=== PATIENT | male | born 1955 | race Caucasian/White ===

== ENCOUNTER → 2016-07-24 | Outpatient (CLI) | payer OTHER ==
[2016-07-24 09:53] LABS: BASOPHILS # (AUTO) 0.02 10*3/UL; BASOPHILS % (AUTO) 0.2 % (0-1); EOSINOPHILS # (AUTO) 0.03 10*3/UL; EOSINOPHILS % (AUTO) 0.3 % (0-8); HEMATOCRIT 49.2 % (42.0-52.0); HEMOGLOBIN 17.1 g/dL (14.0-18.0); LYMPHOCYTES # (AUTO) 1.37 10*3/uL; MEAN CORPUSCULAR HGB CONC 34.8 g/dL (33-37); MEAN PLATELET VOLUME 9.1 FL (7.4-12.2); MONOCYTES # (AUTO) 1.04 10*3/UL (0.3-0.8); NEUTROPHILS # (AUTO) 7.88 10*3/UL; NEUTROPHILS % (AUTO) 76.1 % (50-80); RED BLOOD COUNT 5.03 10^6/uL (4.70-6.10)
--- NOTE | 2016-07-24 09:54 | DI ---
KUB and UPRIGHT ABDOMEN, 07/24/2016 9:08 AM: Clinical History: Right lower quadrant abdominal pain. Previous Exam: None at this facility. There are no soft tissue or bony abnormalities. The patient has had multiple lumbar laminectomies wit h lumbar fusions. Bowel gas pattern, psoas margins, and flank stripes are normal. There is no free ai r or fluid. There are no abnormal radiodensities. Reading: Normal KUB and upright exam.
[2016-07-24 10:01] LABS: PLATELET MORPHOLOGY COMMENT NORMAL MORPHOLOGY (NORM); RBC MORPHOLOGY COMMENT NORMAL MORPHOLOGY (NORM); WBC MORPHOLOGY COMMENT NORMAL MORPHOLOGY (NORM)
[2016-07-24 10:14] LABS: BLOOD UREA NITROGEN 14 mg/dL (7-22); BUN/CREATININE RATIO 15.55 (6-20); CALCIUM 9.6 mg/dL (8.7-10.7); EST GLOMERULAR FILTRATION > 60 (>60 ml/min/1.73m(2)); SERUM ALBUMIN 4.4 g/dL (3.5-4.8)
== END ==
LOC: MOB LAB 09:09
PROVIDERS: ATTEND Physician Assistant Medical
DX: R10.84 Generalized abdominal pain (principal); R10.31 Right lower quadrant pain; R11.2 Nausea with vomiting, unspecified; F17.210 Nicotine dependence, cigarettes, uncomplicated
CPT/HCPCS: 74020; 80053; 83735; 85025

== ENCOUNTER → 2016-07-31 | Outpatient (CLI) | payer OTHER ==
--- NOTE | 2016-07-31 11:01 | DI ---
US ABDOMEN LIMITED,07/31/2016 8:02 AM: Clinical History: Epigastric pain Previous Exam: None at this facility. Findings: Multiple grayscale and color Doppler sonographic images are obtained through the right quadrant, and demonstrate normal hepatic parenchyma. The visualized portions of the pancreas are unremarkable. The gallbladder is also unremarkable with the gallbladder wall measuring 2 mm. Negative sonographic M urphy's sign is obtained. The common bile duct measures 6 mm. The right kidney is normal measuring 10.9 cm in length. The aorta is within normal limits. Impression: Normal right upper quadrant ultrasound.
== END ==
LOC: US 07:58
PROVIDERS: ATTEND Nurse Practitioner Family
DX: R10.13 Epigastric pain (principal); F17.210 Nicotine dependence, cigarettes, uncomplicated
CPT/HCPCS: 76705

== ENCOUNTER → 2016-08-02 | Outpatient (CLI) | payer OTHER ==
--- NOTE | 2016-08-02 11:47 | EKG ---
[address] [address] Measurements Intervals [place] Rate: 78 P: 75 WA: 144 QRS: 75 QRSD: 85 T: 68 QT: 356 QTc: 389 Interpretive Statements SINUS RHYTHM Compared to ECG 12/27/2015 11:00:38 No significant changes Electronically Signed On 08-02-16 16:34:46 MDT by Federico Curtis [email or web address]
== END ==
LOC: EKG 11:34
PROVIDERS: ATTEND Family Medicine
DX: R00.0 Tachycardia, unspecified (principal)
CPT/HCPCS: 93005; 93010

== ENCOUNTER → 2016-08-05 | Outpatient (CLI) | payer OTHER ==
[2016-08-05 09:37] LABS: BLOOD UREA NITROGEN 13 mg/dL (7-22); BUN/CREATININE RATIO 16.25 (6-20); CALCIUM 9.1 mg/dL (8.7-10.7); EST GLOMERULAR FILTRATION > 60 (>60 ml/min/1.73m(2))
== END ==
LOC: LAB 09:13
PROVIDERS: ATTEND Nurse Practitioner Family
DX: E87.6 Hypokalemia (principal); F17.210 Nicotine dependence, cigarettes, uncomplicated
CPT/HCPCS: 36415; 80048

== ENCOUNTER 2016-08-14 08:07 | Day surgery (SDC) | payer OTHER ==
[~2016-08-14 08:07] MED LIST: LIDOCAINE 2% VISCOUS(20 MG/1 ML) - 15 ML UD CUP PO ONE; LIDOCAINE HCL/PF 2% (20 MG/ML) - 5 ML SYRINGE ONE; LIDOCAINE W/ SODIUM BICARB 0.5 ML SYR ONE; Lactated Ringers 1,000 ML PRIMARY IV ONE; MIDAZOLAM 5 MG/1 ML ONE; fentaNYL Inj 100 MCG/2 ML VIAL ONE
--- NOTE | 2016-08-14 09:44 | GEN.OPNOTE ---
EGD / Colonoscopy Report Surgery Date: 08/14/16 Preoperative Diagnosis: Abdominal pain. Colon cancer screening Postoperative Diagnosis: Chronic gastritis Procedure: Colonoscopy. EGD at biopsy Surgeon: Donny Pena MD Anesthesia Provider: Ger Arias CRNA Anesthesia Type: MAC Indications: Patient has a sounds like reflux disease and also some periumbilical pain. He also needs colon cancer screening EGD Findings: Esophagus: Limits video EGD scope inserted in posterior pharynx. Had some upper chronically inflamed appearing hypopharynx. Scope was advanced in the esophagus which revealed a normal esophagus. At the GE junction there appeared to be a small area that may be Huerta's esophagus biopsy was taken GE Junction : GE junction 35 cm from incisors Fundus : Scope retroflexed on itself revealing a normal fundus Body : Body the stomach at would appear to be chronic gastritis biopsies taken Prepyloric : Prepyloric areas free from disease Small Intestine : First second portion of small bowel within normal limits A lubricated flexible upper endoscope was inserted and passed through the esophagus and stomach into the duodenum. Colonoscopy Findings: Prep : Poor Cecum : Scope was advanced to the cecum and ileocecal valve identified. The cecum appeared to be normal. There was a large amount retained stool within the entire colon therefore small lesions could have been missed Ascending : Ascending colon and no abnormal pathology that could be seen Transverse : Transverse colon had no pathology could be noticed Sigmoid : Descending and sigmoid colon were free from disease Rectum : In the rectum the patient would appear to be a hyperplastic polyp seen on the way in but on the way out I could not find the polyp again. I believe it was covered with stool that could not be washed away. Digital Rectal Exam : No rectal masses on digital exam. A lubricated flexible colonoscope was inserted and passed to the blind end of the cecum. Additional Details: Because of the poor prep would recommend another follow-up colonoscopy in 5 years
[2016-08-14 16:02] VITALS: RESP 16
[2016-08-14 16:03] VITALS: TEMP 96.9
== END 2016-08-14 10:17 | disposition home or self-care (01) ==
LOC: SDSC 08:07
PROVIDERS: ATTEND Surgery
DX: R10.9 Unspecified abdominal pain (principal); Z12.11 Encounter for screening for malignant neoplasm of colon; K29.70 Gastritis, unspecified, without bleeding
CPT/HCPCS: 43239; 45378; J2704; J3010; J2001; J2250; J7120

== ENCOUNTER → 2016-10-31 | Outpatient (CLI) | payer OTHER ==
--- NOTE | 2016-10-31 09:24 | DI ---
XR SHOULDER MIN 2VW,10/31/2016 8:52 AM: Clinical History: Right shoulder pain Previous Exam: None at this facility. Findings: 3 views of the right shoulder are obtained, and demonstrate superior translation of the proximal jessica marcos on the glenoid. There is decreased subacromial distance. There is no osteophyte formation. The adjacent right lung and chest wall are unremarkable. Impression: Diffuse degenerative changes of the right glenohumeral joint with osteophyte formation, and evidence of subacromial impingement.
== END ==
LOC: RAD 08:48
PROVIDERS: ATTEND Orthopaedic Surgery
DX: M25.511 Pain in right shoulder (principal); M19.011 Primary osteoarthritis, right shoulder; M75.41 Impingement syndrome of right shoulder
CPT/HCPCS: 73030

== ENCOUNTER → 2016-11-06 | Outpatient (CLI) | payer OTHER ==
--- NOTE | 2016-11-07 00:08 | DI ---
MRI UP EXTREMITY JNT W/O CN,11/06/2016 2:58 PM: Clinical History: Right shoulder subluxation and pain. Previous Exam: October 31, 2016 Findings: Multiplanar MR images are obtained through the right shoulder without contrast. There is superior translation of the humerus on the glenoid with near complete loss of the subacromia l space. Postsurgical changes are seen most consistent with a prior Steven procedure. There are degenerative changes involving the articular surface of the humeral head. There are small s ubchondral cysts noted as well as edema involving the posterior right glenoid. There is a right shoulder joint effusion. There are multiple osteophytes noted. There are some cystic changes near the insertion of the greater tubercle. There is some degenerative tearing of the of the glenoid labrum. The major vascular flow voids are unremarkable. Evaluation of the rotator cuff demonstrates a complete full-thickness tear approximately 5 cm of retr action. There is diffuse looses the infraspinatus tendon is some articular surface tearing of the distal cristian chment. There is also cystic changes near the attachment on the greater tubercle most consistent with intrasubstance footplate tear is. The long head of the biceps tendon appears to be grossly normal and is well seated within the bicipit al groove. There is a near complete full thickness tear of the subscapularis muscle as well as some remaining fi bers of demonstrate tendinosis. Signal within the deltoid is grossly normal. Impression: 1. Superior translation of the proximal humerus and complete loss of the subacromial distance with a full thickness complete tear of the supraspinatus tendon with 5 cm of retraction. 2. Full-thickness tear of the subscapularis tendon with some residual fibers. 3. Tendinosis of the infraspinatus tendon and articular surface tears to include interstitial footpla te tear is at the insertion on the greater tubercle. 4. Right shoulder joint effusion. 5. Degenerative tearing of the glenoid labrum. 6. Full-thickness osteochondral defects involving the glenohumeral joint with subchondral edema.
== END ==
LOC: MRI 14:47
PROVIDERS: ATTEND Physician Assistant Surgical
DX: M25.511 Pain in right shoulder (principal); S46.011A Strain of muscle(s) and tendon(s) of the rotator cuff of right shoulder, initial encounter
CPT/HCPCS: 73221

== ENCOUNTER → 2016-12-02 | Outpatient (CLI) | payer OTHER ==
[2016-12-02 12:16] LABS: BLOOD UREA NITROGEN 14 mg/dL (7-22); CALCIUM 9.3 mg/dL (8.7-10.7); EST GLOMERULAR FILTRATION > 60 (>60 ml/min/1.73m(2)); SERUM ALBUMIN 4.1 g/dL (3.5-4.8)
[2016-12-02 12:18] LABS: BASOPHILS % (AUTO) 1.2 % (0-1); EOSINOPHILS % (AUTO) 1.2 % (0-8); HEMATOCRIT 43.8 % (42.0-52.0); HEMOGLOBIN 15.1 g/dL (14.0-18.0); MEAN CORPUSCULAR HEMOGLOBIN 34.5 PG (27-31); MEAN CORPUSCULAR HGB CONC 34.5 g/dL (33-37); MEAN CORPUSCULAR VOLUME 100 FL (80-90); MEAN PLATELET VOLUME 8.9 FL (7.4-12.2); MONOCYTES % (AUTO) 8.1 % (5-15); NEUTROPHILS % (AUTO) 69.3 % (50-80); RED BLOOD COUNT 4.38 10^6/uL (4.70-6.10)
[2016-12-02 12:19] LABS: BASOPHILS # (AUTO) 0.08 10*3/UL; EOSINOPHILS # (AUTO) 0.08 10*3/UL; MONOCYTES # (AUTO) 0.56 10*3/UL (0.3-0.8); NEUTROPHILS # (AUTO) 4.82 10*3/UL; PLATELET MORPHOLOGY COMMENT NORMAL MORPHOLOGY (NORM); RBC MORPHOLOGY COMMENT NORMAL MORPHOLOGY (NORM); WBC MORPHOLOGY COMMENT NORMAL MORPHOLOGY (NORM)
--- NOTE | 2016-12-02 13:18 | EKG ---
[address] [address] Measurements Intervals [place] Rate: 57 P: 85 [place]: 146 QRS: 85 QRSD: 93 T: 76 QT: 411 QTc: 404 Interpretive Statements SINUS BRADYCARDIA WITH SINUS ARRHYTHMIA EARLY REPOLARIZATION Compared to ECG 08/02/2016 11:49:33 Sinus rhythm no longer present Electronically Signed On 12-02-16 19:53:58 MDT by Federico Curtis [id number]
== END ==
LOC: LAB 11:54
PROVIDERS: ATTEND Orthopaedic Surgery
DX: Z01.812 Encounter for preprocedural laboratory examination (principal); M25.511 Pain in right shoulder; R00.1 Bradycardia, unspecified
CPT/HCPCS: 36415; 80053; 85025; 93005; 93010

== ENCOUNTER 2018-07-11 09:37 | Observation (INO) ==
[~2018-07-11 09:37] MED LIST changes: +Acetaminophen 1000mg Inj 1,000 MG/100 ML VIAL IV ONE; +BUPIVACAINE 0.5% W/ EPI - 10 ML VIAL ONE; +BUPivacaine Liposome/PF (Exparel) Inj 20ml vial INFIL ONE; +CITRIC ACID/SODIUM CITRATE 30 ML CUP PO ONE; +DEXAMETHASONE PF 10 MG/1 ML VIAL ONE; +FAMOTIDINE 20 MG/2 ML VIAL IVP ONE; +KETOROLAC 30 MG/1 ML VIAL ONE; +Ketorolac Inj 30 MG, Morphine Inj (Ortho Cocktail) 5 MG, BUPivacaine Inj 0.25% PF 150 MG SPLASH ONE; -LIDOCAINE 2% VISCOUS(20 MG/1 ML) - 15 ML UD CUP PO ONE; +LIDOCAINE 2%/ EPI 1:200,000 - 20 ML VIAL ONE; -LIDOCAINE HCL/PF 2% (20 MG/ML) - 5 ML SYRINGE ONE; +LIDOCAINE MPF 2% - 5 ML (20 MG/1 ML) ONE; +LIDOCAINE W/ SODIUM BICARB 0.5 ML SYR SUBD ONE; +Nasal Sanitizer POPSWAB ampule 3 AMP (Nozin) PREOP DOSE ENOS SCH; +PROPOFOL 10 MG/1 ML (200 MG/20 ML) VIAL IV ONE; +REMIFENTANIL 1 MG/1 ML IV ONE; +ROCURONIUM 10 MG/1 ML - 5 ML VIAL IVP ONE; +Sodium Chloride 0.9% vial 20 ML ONE; +ceFAZolin Inj 2gm (Premix) 2 GM/50 ML BAG IV ONE; -fentaNYL Inj 100 MCG/2 ML VIAL ONE; +fentaNYL Inj 250 MCG/5 ML VIAL ONE
[2018-07-11] MEDS ORDERED: BACITRACIN 50,000 UNIT VIAL IRRIG ONE (10:07)
[2018-07-11] MEDS ORDERED: BUPIVACAINE 0.5% W/ EPI - 10 ML VIAL ONE (10:07)
[2018-07-11] MEDS ORDERED: Sodium Chloride 0.9% vial 20 ML ONE (10:07)
[2018-07-11 10:09] LABS: BASOPHILS # (AUTO) 0.02 10*3/UL; BASOPHILS % (AUTO) 0.3 % (0-1); EOSINOPHILS # (AUTO) 0.28 10*3/UL; EOSINOPHILS % (AUTO) 4.3 % (0-8); Hematocrit [HCT] 40.3 % (42.0-52.0); Hemoglobin [HGB] 13.6 g/dL (14.0-18.0); LYMPHOCYTES # (AUTO) 1.58 10*3/uL; MEAN CORPUSCULAR HEMOGLOBIN 34.7 PG (27-31); MEAN CORPUSCULAR HGB CONC 33.7 g/dL (33-37); MEAN CORPUSCULAR VOLUME 102.8 FL (80-90); MEAN PLATELET VOLUME 9.1 FL (7.4-12.2); MONOCYTES # (AUTO) 0.68 10*3/UL (0.3-0.8); MONOCYTES % (AUTO) 10.5 % (5-15); NEUTROPHILS # (AUTO) 3.93 10*3/UL; NEUTROPHILS % (AUTO) 60.4 % (50-80); RED BLOOD COUNT 3.92 10^6/uL (4.70-6.10)
[2018-07-11 10:12] LABS: PLATELET MORPHOLOGY COMMENT NORMAL MORPHOLOGY (NORM); RBC MORPHOLOGY COMMENT NORMAL MORPHOLOGY (NORM); WBC MORPHOLOGY COMMENT NORMAL MORPHOLOGY (NORM)
[2018-07-11] MEDS: Lactated Ringers 1,000 ML PRIMARY IV SCH ×4 (10:19→23:52)
[2018-07-11 10:25] LABS: BLOOD UREA NITROGEN 15 mg/dL (7-22); BUN/CREATININE RATIO 18.75 (6-20)
[2018-07-11] MEDS ORDERED: IPRATROPIUM/ALBUTEROL SULFATE 3 ML NEB NEB ONE (10:30)
--- NOTE | 2018-07-11 10:35 | CRNA.PROCE ---
Nerve Block Documentation - - Moniters Used During Block: EKG Sedation Used - Enter Amount in Comment Field [ANES.SEDAT]: Midazolam (mg): Yes (2) Nerve Block Needle Used: 100 mm ProBlk II Local Anesthetic - Enter Amt in Comment Field [ANES.LOCNB]: 0.5 % Bupivicaine with Epinephrine 1:200,000 (mL): Yes (20cc), 2 % Xylocaine with Epinephrine 1:200,000 (mL): Yes (20cc) - - PreOp Block : Time In: 10:10 PreOp Block : Time Out: 10:23 Anesthesia Time - Other Weight: 79.832 kg Height: 5 ft 9 in Body Mass Index (BMI): 25.9
[2018-07-11] MEDS ORDERED: Sodium Chloride 0.9% vial 40 ML ONE (11:14)
[2018-07-11] MEDS ORDERED: BUPivacaine Liposome/PF (Exparel) Inj 20ml vial INFIL ONE (11:14)
[2018-07-11] MEDS ORDERED: KETOROLAC 30 MG/1 ML VIAL ONE (11:49)
[2018-07-11] MEDS ORDERED: Lactated Ringers 1,000 ML PRIMARY IV ONE (12:03)
[2018-07-11] MEDS ORDERED: TRANEXAMIC ACID 1,000 MG / 10 ML VIAL ONE (12:37)
--- NOTE | 2018-07-11 13:25 | CRNA.PROGR ---
Anesthesia Time - Procedure/Recovery Time Start Date: 07/11/18 Anesthesia : Time In: 10:47 Anesthesia : Time Out: 13:20 - Block Time PreOp Block : Time In: 10:10 PreOp Block : Time Out: 10:23 - Other Weight: 79.832 kg Height: 5 ft 9 in Body Mass Index (BMI): 25.9 Physical Status: P2
[2018-07-11] MEDS ORDERED: HYDROmorphone 2 MG/1 ML ONE (13:44)
[2018-07-11] MEDS: HYDROmorphone 2 MG/1 ML IVP PRN ×2 (13:46→13:51)
[2018-07-11] MEDS ORDERED: HYDROcodone-APAP 10 MG-325 MG TABLET PO PRN (14:05)
[2018-07-11] MEDS ORDERED: HYDROmorphone 2 MG/1 ML IVP PRN (14:05)
[2018-07-11] MEDS ORDERED: ONDANSETRON 4 MG/2 ML VIAL IVP PRN (14:05)
--- NOTE | 2018-07-11 14:21 | ORTHO.OP ---
- - -: See Dictated Operative Report Procedure Codes - Lower Extremity/Knee Procedures Primary Lower Extremity Procedure Code: Other CPT Code(s) (CPT 03027, Kriss Cary assisted.)
[2018-07-11] MEDS: HYDROcodone-APAP 10 MG-325 MG TABLET PO PRN ×3 (15:11→23:48)
[2018-07-11] MEDS ORDERED: KETOROLAC 15 MG/1 ML VIAL IVP PRN (17:42)
[2018-07-11] MEDS ORDERED: Acetaminophen 1000mg Inj 1,000 MG/100 ML VIAL IV PRN (17:44)
[2018-07-11] MEDS ORDERED: CARISOPRODOL 350 MG TABLET PO PRN (17:45)
--- NOTE | 2018-07-11 18:12 | ORTHO.PROG ---
Last Taken Vital Signs: Vital Signs - Last Taken Temperature 97.2 F 07/11/18 14:05 Pulse Rate 86 07/11/18 14:05 Respiratory Rate 18 07/11/18 14:05 Blood Pressure 116/69 07/11/18 14:05 Pulse Ox 94 07/11/18 14:05 Subjective: Patient doing reasonably well controlled with hydrocodone, was having nausea with Dilaudid Objective: Patient is eating at the current time motor and sensory exams to be intact with good range of motion and normal sensory exam in the foot and lower extremity the dressing brace and iceman machine is in place. Patient's drain has put out 40 mL this is superficial also has a negative pressure dressing in place. Laboratory Results 07/11/18 07/11/18 07/11/18 10:07 10:07 10:07 WBC 6.50 RBC 3.92 L Hgb 13.6 L Hct 40.3 L MCV 102.8 H MCH 34.7 H MCHC 33.7 RDW Std Deviation 48.3 RDW Coeff of Rosemarie 13.0 Plt Count 293 MPV 9.1 Immature Gran % (Auto) 0.2 Neut % (Auto) 60.4 Lymph % (Auto) 24.3 [place] % (Auto) 10.5 Eos % (Auto) 4.3 Baso % (Auto) 0.3 Immature Gran # (Auto) 0.01 Neut # (Auto) 3.93 Lymph # (Auto) 1.58 [place] # (Auto) 0.68 Eos # (Auto) 0.28 Baso # (Auto) 0.02 WBC Morphology Comment Normal morphology Plt Morphology Comment Normal morphology RBC Morph Comment Normal morphology Sodium 140 Potassium 4.1 Chloride 110 Carbon Dioxide 23 Anion Gap 7 BUN 15 Creatinine 0.8 Estimated GFR > 60 BUN/Creatinine Ratio 18.75 Glucose 94 Calculated Osmolality 290.0 Calcium 9.0 Magnesium 2.1 Assessment: Left quadriceps tendon repair doing well Plan: Patient will utilize pneumatic sequentials and enoxaparin when he goes home. At have Charles for about 2 weeks until he is more active and starts more active range of motion exercises. We'll have him mobilize with therapy I think we can change his weightbearing status to partial weightbearing but no more than say 5 pounds through this. Icing is can be crucial as well as keeping on top of his pain.
[2018-07-12] MEDS: HYDROcodone-APAP 10 MG-325 MG TABLET PO PRN ×2 (03:52→08:26)
[2018-07-12 07:00] VITALS: BP 94/46; RESP 18; TEMP 98.4; O2SAT 92
[2018-07-12] MEDS ORDERED: ENOXAPARIN SODIUM 30 MG/0.3 ML SYRINGE SUBCUT SCH (09:00)
--- NOTE | 2018-07-12 11:09 | ORTHO.PROG ---
Last Taken Vital Signs: Vital Signs - Last Taken Temperature 98.4 F 07/12/18 06:59 Pulse Rate 78 07/12/18 06:59 Respiratory Rate 18 07/12/18 06:59 Blood Pressure 94/46 07/12/18 06:59 Pulse Ox 92 07/12/18 06:59 Subjective: Patient doing well pain controlled with oral medications. Objective: Dressing is in place is no bleeding or ulcerations to the dressing. Patient has a negative pressure Provine a dressing on an Iceman Cryo/Cuff and a deep drain the deep drain yesterday initially put out 40 mL and overnighted another 25 mL of notes about 10 mL us morning. Motor and sensory exam is nonfocal with good pulses and brisk refill able to ambulate well with crutches nonweightbearing. Vital Signs (24 hrs) 07/11/18 13:15 07/11/18 13:20 07/11/18 13:25 Temperature 97.4 F 97.5 F Pulse Rate 74 79 84 Pulse Rate [Apical] Pulse Rate [Pulse Oximeter] Respiratory Rate 20 20 18 Blood Pressure 130/93 136/83 127/110 Blood Pressure [Right Arm] Pulse Ox 98 97 84 07/11/18 13:30 07/11/18 13:35 07/11/18 13:45 Temperature Pulse Rate 86 67 64 Pulse Rate [Apical] Pulse Rate [Pulse Oximeter] Respiratory Rate 17 17 20 Blood Pressure 121/86 122/77 118/75 Blood Pressure [Right Arm] Pulse Ox 97 98 97 07/11/18 13:50 07/11/18 14:05 07/11/18 14:15 Temperature 97.4 F 97.2 F 97.2 F Pulse Rate 69 Pulse Rate [Apical] Pulse Rate [Pulse Oximeter] 86 86 Respiratory Rate 20 18 18 Blood Pressure 118/81 Blood Pressure [Right Arm] 116/69 109/64 Pulse Ox 96 94 94 07/11/18 15:10 07/11/18 17:00 07/11/18 19:00 Temperature 97.1 F 97 F Pulse Rate Pulse Rate [Apical] Pulse Rate [Pulse Oximeter] 59 L 60 75 Respiratory Rate 20 16 18 Blood Pressure Blood Pressure [Right Arm] 112/65 104/58 Pulse Ox 95 97 07/11/18 20:11 07/12/18 00:37 07/12/18 04:07 Temperature 97.3 F 97.5 F 97.7 F Pulse Rate Pulse Rate [Apical] 61 Pulse Rate [Pulse Oximeter] 67 104 H Respiratory Rate 16 18 20 Blood Pressure Blood Pressure [Right Arm] 102/59 123/55 102/52 Pulse Ox 98 92 93 03/03/19 06:59 Temperature 98.4 F Pulse Rate Pulse Rate [Apical] Pulse Rate [Pulse Oximeter] 78 Respiratory Rate 18 Blood Pressure Blood Pressure [Right Arm] 94/46 Pulse Ox 92 Assessment: Left quadriceps tendon repair doing well Plan: Patient is to be discharged home with crutches T ROM brace keeping the leg in full extension and the superficial drain in the subcutaneous tissues. At this point we have also given him a prescription for Lovenox for the next couple weeks 30 mg subcutaneous daily. We'll proceed along these lines see him back tomorrow in the clinic for removal of the drain and changing of the dressing. Weightbearing issues discussed and reviewed drain and negative pressure dressing discussed and reviewed. Patient will continue to use portable pneumatic sequentials on the uninvolved leg and when he has the brace open on the involved leg. We will discharge him home at the current time
--- NOTE | 2018-07-12 11:15 | ORTHO.DC ---
Discharge Summary Admit Date: 07/11/18 Discharge Date: 07/12/18 Admitting Diagnosis: left quadriceps rupture Discharge Diagnosis: Left quadriceps repair Other Surgery and Date: Surgery 07/11/2018 Hospital Course: Patient was taken to surgery on 07/11/2018 and underwent repair of the left quadriceps tendon and was kept overnight for pain control. Patient this morning was doing well reasonably controlled with oral medication and is ready for discharge. Discharge Medications: Discharge Medications hydrocodone 10 mg-acetaminophen 325 mg tablet See Rx Instructions PO Q4-6H PRN #40 tab 07/10/18 [Rx] Enoxaparin Inj [Lovenox Inj] 30 mg SUBCUT DAILY 13 Days syringe 07/12/18 [Rx] Follow-Up: BREANNA BRITTON [Primary Care Provider] - As Needed Kranthi Adams [STAFF PHYSICIAN] - As Needed (Call for appointment) Discharge Instructions Provided to Patient / Family: Knee Immobilizer (GEN), Tendon Repair (DC) Exam - Vitals Vital Signs: Vital Signs Temperature 98.4 F Temperature Source Temporal Artery Scan Pulse Rate [Apical] 61 Pulse Rate [Pulse Oximeter] 78 Pulse Rate 69 Respiratory Rate 18 Blood Pressure [Right Arm] 94/46 Blood Pressure 118/81 Pulse Ox 92 Oxygen Flow Rate .5 Oxygen Delivery Method Room Air Height 5 ft 9 in Weight 86.455 kg
--- NOTE | 2018-07-13 11:27 | OPS CRUTCH ---
Diagnosis : Quad Tendon Repair Referral Reason: IROM Knee Brace/IceMan Cold Therapy Unit O: The patient was issued an IROM knee brace and an IceMan Cold Therapy Unit and instructed in their proper use and care. P: No further therapy is indicated at this time. MTDD
--- NOTE | 2018-07-13 14:24 | OPS CRUTCH ---
Diagnosis : Left Quad Repair Referral Reason: Gait Training O: The patient received gait training, non weight-bearing on the left lower extremity with use of crutches, post-op bandage with the IceMan and IROM locked at 0 degrees. He was able to get in and out of bed with modified independence with use of the right lower extremity as well as ambulate 300 feet going up and down stairs, maintaining his non weight-bearing restrictions. A: The therapist contacted Dr. Adams to tell him the patient has been cleared from therapy and we discussed participation with physical therapy in two weeks. P: No further therapy is indicated at this time. MTDD
== END 2018-07-12 11:18 | disposition home or self-care (01) ==
LOC: MED/SURG 09:37 → OR 09:37 → OPS 09:38 → MED/SURG 14:03
PROVIDERS: ADMIT Orthopaedic Surgery; ATTEND Orthopaedic Surgery